=== PATIENT | male | born 1970 | race Caucasian/White ===

== ENCOUNTER 2019-06-18 16:29 | Emergency (ER) | payer SELFPAY ==
[~2019-06-18] VITALS: Ht 172.7 cm; Wt 90.7 kg
[2019-06-18 16:41] VITALS: BP_SYST 120
[2019-06-18 19:04] VITALS: BP_SYST 124
== END 2019-06-18 19:04 | disposition home or self-care (01) ==
LOC: SED 16:29
DX: J06.9 Acute upper respiratory infection, unspecified (principal)
CPT/HCPCS: 99283

== ENCOUNTER 2024-05-28 12:23 | Emergency (ER) | payer MEDICAID ==
[~2024-05-28] VITALS: Ht 177.8 cm; Wt 92.5 kg
[2024-05-28 12:46] VITALS: BP_SYST 129; PULSE 67; RESP 18; TEMP 97.8; O2SAT 95
[2024-05-28] MEDS ORDERED: BENZ1LOZ73 PO (13:35)
[2024-05-28 13:44] VITALS: BP_SYST 129; PULSE 67; RESP 18; TEMP 97.8; O2SAT 95
== END 2024-05-28 13:43 | disposition home or self-care (01) ==
LOC: SED 12:23
DX: J06.9 Acute upper respiratory infection, unspecified (principal); B97.89 Other viral agents as the cause of diseases classified elsewhere; Z79.899 Other long term (current) drug therapy
CPT/HCPCS: 99282